=== PATIENT | female | born 1940 | race Caucasian/White ===

== ENCOUNTER 2018-10-22 06:57 | Day surgery (SDC) | payer OTHER, MEDICARE ==
[2018-10-21 12:14] VITALS: BMI 23.6
[2018-10-22 09:05] VITALS: TEMP 98.6
[2018-10-22 09:28] VITALS: BP 157/52; PULSE 60
--- NOTE | 2018-10-25 18:11 | PATH ---
Surgical Pathology Report Patient Name: JOO FINCH [facility]. Rec. #: [id number] /Age/Gender: 1940 (Age: 78) / F Account: [id number] Location: [facility]-ENDOSCOPY Taken: 10/22/2018 Received: 10/22/2018 Reported: 10/25/2018 Physicians: Vijay Elizondo M.D. Specimen(s) Received MID TRANSVERSE COLON POLYP Clinical History Adenoma surveillance Postoperative diagnosis: Diverticulosis, mid transverse colon polyp Final Diagnosis MID TRANSVERSE COLON, POLYP, BIOPSY: COLONIC MUCOSA WITH MILD SUPERFICIAL HYPERPLASTIC FEATURES. Electronically Signed Jolynn Smith M.D. Gross Description Received in formalin, labeled "biopsy mid transverse colon polyp" is a carvalho, irregular portion of soft tissue measuring 0.4 cm. in greatest dimension. The specimen is submitted in toto in one cassette. /10/22/2018 saudi/10/22/2018
== END 2018-10-22 09:46 | disposition home or self-care (01) ==
LOC: JASU-ENDO 06:57
PROVIDERS: ATTEND Internal Medicine Gastroenterology
PROC: 0DBL8ZX Excision of Transverse Colon, Via Natural or Artificial Opening Endoscopic, Diagnostic (ICD-10-PCS; principal; 2018-10-22 08:00)
DX: Z12.11 Encounter for screening for malignant neoplasm of colon (principal); D12.3 Benign neoplasm of transverse colon; K57.30 Diverticulosis of large intestine without perforation or abscess without bleeding; K64.8 Other hemorrhoids; Z86.010 Personal history of colon polyps; Z80.0 Family history of malignant neoplasm of digestive organs
CPT/HCPCS: 88305-TC